=== PATIENT | female | born 1980 | race Two or more races ===

== ENCOUNTER 2024-06-23 05:21 | Day surgery (SDC) | payer OTHER ==
[~2024-06-23] VITALS: Ht 165.1 cm; Wt 70.8 kg
[~2024-06-23 05:21] MED LIST: TAMOXIFEN CITRA20 MG PO
[2024-06-23] MEDS ORDERED: CEFAZOLIN SODIUM 1,000 MG VIAL ONE (09:51)
[2024-06-23] MEDS ORDERED: GENTAMICIN SULFATE 40 MG/ML VIAL ONE (09:51)
[2024-06-23] MEDS ORDERED: POVIDONE-IODINE 118 ML BOTT TOP ONE (09:51)
[2024-06-23] MEDS ORDERED: POVIDONE-IODINE SCRUB 118 ML BOTT TOP ONE (09:51)
[2024-06-23] MEDS ORDERED: CLINDAMYCIN PHOSPHATE 150 MG/ML (900mg) ONE (09:53)
== END 2024-06-23 15:35 | disposition home or self-care (01) ==
LOC: CIR.AMB 05:21
PROVIDERS: ATTEND Surgery
DX: C50.411 Malignant neoplasm of upper-outer quadrant of right female breast (principal); Z90.11 Acquired absence of right breast and nipple; N64.81 Ptosis of breast; R59.0 Localized enlarged lymph nodes
CPT/HCPCS: 19303; 38525; 19357; A9541

== ENCOUNTER 2024-08-11 06:28 | Day surgery (SDC) | payer OTHER ==
[2024-08-11] MEDS ORDERED: CLINDAMYCIN PHOSPHATE 150 MG/ML (900mg) IV ONE (07:45)
[2024-08-11] MEDS ORDERED: NITROGLYCERIN 1 INCH OINT..GM. TD ONE (07:45)
[2024-08-11] MEDS ORDERED: EPINEPHRINE HCL/PF 1 MG/ML AMPUL IR ONE (07:45)
[2024-08-11] MEDS ORDERED: CEFAZOLIN SODIUM 1,000 MG VIAL IV ONE (07:45)
[2024-08-11] MEDS ORDERED: BUPIVACAINE HCL 30 ML VIAL IJ ONE (07:45)
[2024-08-11] MEDS ORDERED: VANCOMYCIN HCL 1,000 MG VIAL IR ONE (07:45)
[2024-08-11] MEDS ORDERED: GENTAMICIN SULFATE 40 MG/ML VIAL IR ONE (07:45)
[2024-08-11] MEDS ORDERED: ONDANSETRON HCL 2 MG/ML VIAL IV PRN (11:15)
[2024-08-11] MEDS ORDERED: MORPHINE SULFATE 4 MG/ML CARTRIDGE IV PRN (11:15)
[2024-08-11] MEDS ORDERED: MORPHINE SULFATE 4 MG/ML VIAL IV ONE ×2 (11:40→12:10)
== END 2024-08-11 13:45 | disposition home or self-care (01) ==
LOC: CIR.AMB 06:28 → O/R 09:32 → CIR.AMB 09:32 → O/R 13:45 → CIR.AMB 15:15
PROVIDERS: ATTEND Plastic Surgery
DX: C50.411 Malignant neoplasm of upper-outer quadrant of right female breast (principal); N65.1 Disproportion of reconstructed breast; Z90.11 Acquired absence of right breast and nipple; N64.89 Other specified disorders of breast; N64.81 Ptosis of breast; N62 Hypertrophy of breast

== ENCOUNTER 2024-10-05 08:52 | Outpatient (CLI) | payer OTHER | END 2024-10-05 09:00 | disposition home or self-care (01) | LOC: SONOGRAMA 08:52 | PROVIDERS: ATTEND Plastic Surgery | DX: C50.911 Malignant neoplasm of unspecified site of right female breast (principal); Z90.11 Acquired absence of right breast and nipple; L76.82 Other postprocedural complications of skin and subcutaneous tissue ==

== ENCOUNTER 2024-11-03 05:31 | Day surgery (SDC) | payer OTHER ==
[2024-11-01 08:57] LABS: HEMATOCRIT 37.5 % (36.0-45.00); HEMOGLOBIN 12.9 g/dL (12.0-15.00); MEAN CELL VOLUME 86.5 fL (80.00-100.00); MEAN CORPUSCULAR HEMOGLOBIN 29.7 pg (27.00-32.0); MEAN CORPUSCULAR HGB CONC 34.4 g/dl (32.0-36.0); PLATELET COUNT 249 K/uL (150-450); RED BLOOD COUNT 4.33 M/uL (4.00-6.00)
[2024-11-01 08:58] LABS: PH,URINE 5.5 (5.0-8.0); URINE APPEARANCE Clear; URINE BILIRRUBIN Negative (NEGATIVE); URINE BLOOD Moderate; URINE COLOR Yellow; URINE GLUCOSE Negative (NEGATIVE); URINE KETONE Negative (NEGATIVE); URINE LEUKOCYTE Trace; URINE NITRATE Negative; URINE PROTEIN Negative (NEGATIVE)
[2024-11-01 09:00] LABS: URINE BACTERIA 245.9 uL (0.0-1933); URINE RBC 11.3 uL (0.0-20.8); URINE WBC 9.3 uL (0.0-23.2)
[2024-11-01 09:16] LABS: INR 0.98; PARTIAL THROMBOPLASTIN TIME 25.2 SECONDS (22.0-34.0); PROTHROMBIN TIME 10.7 SECONDS (9.0-11.5)
[2024-11-01 09:50] LABS: CALCIUM 9.3 mg/dL (8.5-10.1); CREATININE SERUM 0.91 mg/dL (0.55-1.02); GFR 66.85; POTASSIUM 3.61 mEq/L (3.5-5.1)
[2024-11-01 10:51] VITALS: BP 134/87
[~2024-11-03] VITALS: Ht 165.1 cm; Wt 75.3 kg
[~2024-11-03 05:31] MED LIST changes: +OMEGA-31000 MG PO
[2024-11-03] MEDS ORDERED: MORPHINE SULFATE 4 MG/ML VIAL IV ONE (10:20)
[2024-11-03] MEDS ORDERED: POVIDONE-IODINE SCRUB 118 ML BOTT TOP ONE (10:45)
[2024-11-03] MEDS ORDERED: MORPHINE SULFATE 4 MG/ML VIAL IV PRN (10:45)
[2024-11-03] MEDS ORDERED: POVIDONE-IODINE 118 ML BOTT TOP ONE (10:45)
[2024-11-03] MEDS ORDERED: ONDANSETRON HCL 2 MG/ML VIAL IV PRN (10:45)
[2024-11-03] MEDS ORDERED: GENTAMICIN SULFATE 80 MG in 0.9 % SODIUM CHLORIDE 100 ML IV ONE (10:45)
[2024-11-03] MEDS ORDERED: CEFAZOLIN SODIUM 1,000 MG in 0.9 % SODIUM CHLORIDE 50 ML IV ONE (10:45)
== END 2024-11-03 13:10 | disposition home or self-care (01) ==
LOC: CIR.AMB 05:31
PROVIDERS: ATTEND Plastic Surgery
DX: T85.44XA Capsular contracture of breast implant, initial encounter (principal)